=== PATIENT | female | born 1970 | race Caucasian/White ===

== ENCOUNTER 2016-12-04 14:06 | Emergency (ER) | payer OTHER ==
[2016-12-04 16:10] LABS: HEMOGLOBIN 13.3 gm/dl (12.3-15.3); RED BLOOD COUNT 4.56 M/UL (4.00-5.10); WHITE BLOOD COUNT 15.3 K/UL (4.5-11.0)
[2016-12-04 16:25] LABS: BUN/CREATININE RATIO 23 (0-10)
== END 2016-12-04 18:30 | disposition home or self-care (01) ==
LOC: ER1 14:06
PROVIDERS: Physician Assistant Medical
DX: N10 Acute pyelonephritis (principal); I10 Essential (primary) hypertension; Z90.49 Acquired absence of other specified parts of digestive tract; Z88.1 Allergy status to other antibiotic agents; Z79.899 Other long term (current) drug therapy
CPT/HCPCS: 36415; 80053; 81001; 83690; 85025; 87077; 87086; 87186; 99284

== ENCOUNTER 2017-02-06 21:12 | Emergency (ER) | payer OTHER | END 2017-02-06 23:31 | disposition left against medical advice (07) | LOC: ER1 21:12 | DX: R07.9 Chest pain, unspecified (principal); R00.0 Tachycardia, unspecified; Z53.21 Procedure and treatment not carried out due to patient leaving prior to being seen by health care provider | CPT/HCPCS: 93005 ==

== ENCOUNTER 2021-05-21 06:32 | Emergency (ER) | payer OTHER ==
[~2021-05-21 06:32] MED LIST: ASPIRIN CHEWABL81 MG PO
[2021-05-21] MEDS ORDERED: AUGMENTIN 875-1 EACH PO (11:11)
[2021-05-21] MEDS ORDERED: ZOFRAN ODT 4 MG4 MG SL (11:11)
[2021-05-21] MEDS ORDERED: ZITHROMAX250 MG PO (16:15)
== END 2021-05-21 11:15 | disposition home or self-care (01) ==
LOC: ER1 06:32
DX: N10 Acute pyelonephritis (principal); E11.9 Type 2 diabetes mellitus without complications
CPT/HCPCS: 81001; 87077; 87086; 87186; 99284

== ENCOUNTER 2021-05-23 10:09 | Inpatient (IN) | payer OTHER ==
[~2021-05-23] VITALS: Ht 170.2 cm; Wt 169.2 kg
[~2021-05-23 10:09] MED LIST changes: +AUGMENTIN 875-1 EACH PO; +ZITHROMAX250 MG PO; +ZOFRAN ODT 4 MG4 MG SL
[2021-05-23 10:56] LABS: HEMOGLOBIN 11.7 gm/dl (12.3-15.3); RED BLOOD COUNT 3.95 M/UL (4.00-5.10); WHITE BLOOD COUNT 8.7 K/UL (4.5-11.0)
[2021-05-23 12:12] LABS: BUN/CREATININE RATIO 25 (0-10)
[2021-05-23 14:46] LABS: BORDETELLA PARAPERTUSSIS Not Detected (Not Detectd); BORDETELLA PERTUSSIS Not Detected (Not Detectd); CHLAMYDIA PNEUMONIAE Not Detected (Not Detectd); CORONAVIRUS HKU1 Not Detected (Not Detectd); CORONAVIRUS NL63 Not Detected (Not Detectd); CORONAVIRUS OC43 Not Detected (Not Detectd); CORONOAVIRUS 229E Not Detected (Not Detectd); HUMAN METAPNEUMOVIRUS Not Detected (Not Detectd); HUMAN RHINOVIRUS/ENTEROVIRUS Not Detected (Not Detectd); INFLUENZA A Not Detected (Not Detectd); INFLUENZA B Not Detected (Not Detectd); MYCOPLASMA PNEUMONIAE Not Detected (Not Detectd); PARAINFLUENZA VIRUS 1 Not Detected (Not Detectd); PARAINFLUENZA VIRUS 2 Not Detected (Not Detectd); PARAINFLUENZA VIRUS 3 Not Detected (Not Detectd); PARAINFLUENZA VIRUS 4 Not Detected (Not Detectd); RESPIRATORY SYNCYTIAL VIRUS Not Detected (Not Detectd)
[2021-05-23 15:52] LABS: SARS-CoV-2 NOT DETECTED (Not Detectd)
[2021-05-23] MEDS ORDERED: LISINOPRIL20 MG PO (16:12)
[2021-05-23] MEDS ORDERED: GABAPENTIN100 MG PO (16:13)
[2021-05-23] MEDS ORDERED: AMBIEN10 MG PO (16:14)
[2021-05-23] MEDS ORDERED: DRISDOL1250 MCG PO (16:14)
[2021-05-24 03:09] LABS: HEMOGLOBIN 11.1 gm/dl (12.3-15.3); RED BLOOD COUNT 3.73 M/UL (4.00-5.10); WHITE BLOOD COUNT 7.2 K/UL (4.5-11.0)
[2021-05-25 04:21] LABS: HEMOGLOBIN 11.1 gm/dl (12.3-15.3); RED BLOOD COUNT 3.8 M/UL (4.00-5.10); WHITE BLOOD COUNT 8.4 K/UL (4.5-11.0)
[2021-05-25 04:50] LABS: BUN/CREATININE RATIO 47 (0-10)
[2021-05-26 04:38] LABS: HEMOGLOBIN 10.9 gm/dl (12.3-15.3); RED BLOOD COUNT 3.68 M/UL (4.00-5.10)
[2021-05-26 04:54] LABS: BUN/CREATININE RATIO 41 (0-10)
[2021-05-26] MEDS ORDERED: DECADRON0.5 MG PO (14:20)
[2021-05-26] MEDS ORDERED: BACTRIM DS TAB1 EACH PO (14:20)
[2021-05-26] MEDS ORDERED: PROVENTIL HFA6.7 GM INH (14:20)
== END 2021-05-26 16:30 | disposition home or self-care (01) | DRG 871 ==
LOC: ER1 10:09 → CDU 14:42 → PROG CARE 14:42
PROVIDERS: Preventive Medicine Occupational Medicine; ADMIT Internal Medicine
PROC: 3E0333Z Introduction of Anti-inflammatory into Peripheral Vein, Percutaneous Approach (ICD-10-PCS; principal; 2021-05-23)
PROC: XW033E5 Introduction of Remdesivir Anti-infective into Peripheral Vein, Percutaneous Approach, New Technology Group 5 (ICD-10-PCS; 2021-05-23)
PROC: 5A09457 Assistance with Respiratory Ventilation, 24-96 Consecutive Hours, Continuous Positive Airway Pressure (ICD-10-PCS; 2021-05-23)
PROC: 3E02340 Introduction of Influenza Vaccine into Muscle, Percutaneous Approach (ICD-10-PCS; 2021-05-24)
DX: A41.9 Sepsis, unspecified organism (principal); J96.01 Acute respiratory failure with hypoxia; G93.41 Metabolic encephalopathy; J96.02 Acute respiratory failure with hypercapnia; N17.9 Acute kidney failure, unspecified; E66.2 Morbid (severe) obesity with alveolar hypoventilation; Z68.44 Body mass index [BMI] 60.0-69.9, adult; N30.90 Cystitis, unspecified without hematuria; I10 Essential (primary) hypertension; B96.1 Klebsiella pneumoniae [K. pneumoniae] as the cause of diseases classified elsewhere; E86.9 Volume depletion, unspecified; E11.65 Type 2 diabetes mellitus with hyperglycemia; Z20.822 Contact with and (suspected) exposure to COVID-19; Z90.710 Acquired absence of both cervix and uterus; Z90.49 Acquired absence of other specified parts of digestive tract; Z79.82 Long term (current) use of aspirin; Z79.899 Other long term (current) drug therapy; Z23 Encounter for immunization
CPT/HCPCS: 36415; 36600; 51702; 70450; 71045; 71275; 80053; 80202; 80307; 81001; 82140; 82550; 82553; 82803; 82962; 83036; 83605; 83690; 83735; 83874; 84484; 85025; 85027; 85379; 85610; 85652; 86140; 87040; 87077; 87086; 87186; 87633; 93005; 93970; 94640; 94660; 94760; 96365; 96375; 99284; 99285; J0696; J1100; J1335; J1650; J3370; J7030; J7070; Q9967; U0002

== ENCOUNTER → 2021-07-24 | Outpatient (CLI) | payer OTHER ==
[~2021-07-24] MED LIST changes: +AMBIEN10 MG PO; +BACTRIM DS TAB1 EACH PO; +DECADRON0.5 MG PO; +DRISDOL1250 MCG PO; +GABAPENTIN100 MG PO; +LISINOPRIL20 MG PO; +PROVENTIL HFA6.7 GM INH
[2021-07-24 14:09] LABS: HEMOGLOBIN 11.5 gm/dl (12.3-15.3); RED BLOOD COUNT 3.85 M/UL (4.00-5.10)
[2021-07-24 14:47] LABS: BUN/CREATININE RATIO 21 (0-10)
== END ==
LOC: OPSV 12:00
PROVIDERS: Internal Medicine Infectious Disease
DX: A41.9 Sepsis, unspecified organism (principal); J18.9 Pneumonia, unspecified organism; R65.20 Severe sepsis without septic shock; N39.0 Urinary tract infection, site not specified; I10 Essential (primary) hypertension; E11.9 Type 2 diabetes mellitus without complications; E66.01 Morbid (severe) obesity due to excess calories
CPT/HCPCS: 36415; 80053; 81001; 83036; 85025; 87077; 87086; 87186; G0463

== ENCOUNTER → 2021-07-30 | Outpatient (CLI) | payer OTHER ==
[~2021-07-30] VITALS: Ht 170.2 cm; Wt 152.9 kg
== END ==
LOC: OPSV 14:36
DX: N39.0 Urinary tract infection, site not specified (principal)
CPT/HCPCS: 96365; C1751; J1335

== ENCOUNTER → 2021-07-31 | Outpatient (CLI) | payer OTHER ==
[~2021-07-31] VITALS: Ht 170.2 cm; Wt 152.9 kg
== END ==
LOC: OPSV 14:44
DX: N39.0 Urinary tract infection, site not specified (principal); Z87.440 Personal history of urinary (tract) infections
CPT/HCPCS: 96365; J1335

== ENCOUNTER → 2021-08-01 | Outpatient (CLI) | payer OTHER ==
[~2021-08-01] VITALS: Ht 170.2 cm; Wt 152.9 kg
== END ==
LOC: OPSV 06:30
DX: N39.0 Urinary tract infection, site not specified (principal)
CPT/HCPCS: 96365; J1335

== ENCOUNTER → 2021-08-02 | Outpatient (CLI) | payer OTHER ==
[~2021-08-02] VITALS: Ht 170.2 cm; Wt 152.9 kg
== END ==
LOC: OPSV 06:29
DX: N39.0 Urinary tract infection, site not specified (principal); Z87.440 Personal history of urinary (tract) infections
CPT/HCPCS: 96365; J1335

== ENCOUNTER → 2021-08-03 | Outpatient (CLI) | payer OTHER ==
[~2021-08-03] VITALS: Ht 170.2 cm; Wt 152.9 kg
== END ==
LOC: OPSV 06:35
DX: N39.0 Urinary tract infection, site not specified (principal)
CPT/HCPCS: 96365; J1335

== ENCOUNTER → 2021-08-04 | Outpatient (CLI) | payer OTHER | LOC: OPSV 06:36 | DX: N39.0 Urinary tract infection, site not specified (principal); Z87.440 Personal history of urinary (tract) infections | CPT/HCPCS: 96365; J1335 ==

== ENCOUNTER → 2021-08-05 | Outpatient (CLI) | payer OTHER ==
[~2021-08-05] VITALS: Ht 170.2 cm; Wt 152.9 kg
== END ==
LOC: OPSV 14:54
DX: N39.0 Urinary tract infection, site not specified (principal)
CPT/HCPCS: 96365; J1335

== ENCOUNTER → 2021-08-06 | Outpatient (CLI) | payer OTHER ==
[~2021-08-06] VITALS: Ht 170.2 cm; Wt 152.9 kg
== END ==
LOC: OPSV 14:34
DX: N39.0 Urinary tract infection, site not specified (principal)
CPT/HCPCS: 96365; J1335

== ENCOUNTER → 2021-08-07 | Outpatient (CLI) | payer OTHER ==
[~2021-08-07] VITALS: Ht 170.2 cm; Wt 152.9 kg
== END ==
LOC: OPSV 14:32
DX: N39.0 Urinary tract infection, site not specified (principal); Z87.440 Personal history of urinary (tract) infections
CPT/HCPCS: 96365; J1335

== ENCOUNTER → 2021-08-08 | Outpatient (CLI) | payer OTHER ==
[~2021-08-08] VITALS: Ht 170.2 cm; Wt 152.9 kg
== END ==
LOC: OPSV 14:23
DX: N39.0 Urinary tract infection, site not specified (principal); Z87.440 Personal history of urinary (tract) infections
CPT/HCPCS: 96365; J1335

== ENCOUNTER → 2021-08-09 | Outpatient (CLI) | payer OTHER ==
[~2021-08-09] VITALS: Ht 170.2 cm; Wt 152.9 kg
== END ==
LOC: OPSV 14:17
DX: N39.0 Urinary tract infection, site not specified (principal); Z87.440 Personal history of urinary (tract) infections
CPT/HCPCS: 96365; J1335

== ENCOUNTER → 2021-08-10 | Outpatient (CLI) | payer OTHER ==
[~2021-08-10] VITALS: Ht 170.2 cm; Wt 152.9 kg
== END ==
LOC: OPSV 06:40
DX: N39.0 Urinary tract infection, site not specified (principal); Z87.440 Personal history of urinary (tract) infections
CPT/HCPCS: 96365; J1335

== ENCOUNTER → 2021-08-11 | Outpatient (CLI) | payer OTHER ==
[~2021-08-11] VITALS: Ht 170.2 cm; Wt 152.9 kg
== END ==
LOC: OPSV 06:41
DX: N39.0 Urinary tract infection, site not specified (principal)
CPT/HCPCS: 96365; J1335

== ENCOUNTER → 2021-08-12 | Outpatient (CLI) | payer OTHER ==
[~2021-08-12] VITALS: Ht 170.2 cm; Wt 152.9 kg
== END ==
LOC: OPSV 14:32
DX: N39.0 Urinary tract infection, site not specified (principal)
CPT/HCPCS: 96365; J1335

== ENCOUNTER → 2021-08-20 | Outpatient (CLI) | payer OTHER | LOC: LAB 14:56 | DX: N39.0 Urinary tract infection, site not specified (principal) | CPT/HCPCS: 81001; 87086 ==